=== PATIENT | female | born 1985 | race Caucasian/White ===

== ENCOUNTER 2017-03-18 21:44 | Emergency (ER) | payer OTHER ==
--- NOTE | 2017-03-18 21:52 | PDOC ---
History of Present Illness - General History Source: Patient Exam Limitations: No Limitations - History of Present Illness Initial Comments: 03/18/17 22:07 The patient is a 31 year old female, with no significant past medical history, who presents to the emergency room complaining of 5 days of left knee pain. She states that 5 days ago she had a cramp in her knee which prevented her from bending her knee at night. She states that pain remained and somewhat alleviated over the next 4 days, however, today the pain worsened to the point where that she was limping upon ambulation. She has been taking aleve with mild relief. She made an appointment with ortho for Wednesday, but could not tolerate the pain [facility] 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 Denies numbness and tingling. Denies recent falls or injury. Denies calf pain. PCP: Dr. Lalo Castro PAST MEDICAL HISTORY: no significant history PAST SURGICAL HISTORY: no significant history FAMILY HISTORY: no pertinent history MEDICATIONS: reviewed ALLERGIES: As per nursing notes Review of Systems General: No fevers or chills, no weakness, no weight loss HEENT: No change in vision. No sore throat, No ear pain CardioVascular: No chest pain or shortness of breath Respiratory:No cough, or wheezing. Gastrointestinal: no nausea, vomiting, diarrhea or constipation, No rectal bleeding Genitourinary: No dysuria, hematuria, or frequency Musculoskeletal: +pain to the left knee. Neurologic: No headache, vertigo, dizziness or loss of consciousness Psychiatric: nor depression Skin: No rashes or easy bruising Endocrine: no increased thirst or abnormal weight change Allergic: no skin or latex allergy All other systems reviewed and normal Physical exam GENERAL: The patient is awake, alert, and fully oriented, in no acute distress. HEAD: Normal with no signs of trauma. EYES: Pupils equal, round and reactive to light, extraocular movements intact, sclera anicteric, conjunctiva clear. LEFT LOWER EXTREMITY: + Mild swelling medially with tenderness to palpation distal to knee. There is no fullness or pain to palpation to the posterior knee. Neurovascular intact. No erythema, ecchymosis, or increased warmth in the area of the knee. NEUROLOGICAL: Normal speech. PSYCH: Normal mood, normal affect. SKIN: Warm, Dry, normal turgor, no rashes or lesions noted. <Chelsy Hopkins - Last Filed: 03/18/17 22:08> - General History Source: Patient Exam Limitations: No Limitations - History of Present Illness Initial Comments: 03/18/17 23:23 A portion of this note was documented by scribe services under my direction. I have reviewed the details of the note, within reason, and agree with the documentation. The case summary and management plan written by me. Ultrasound negative for DVT or lou's cyst. Assessment and plan: This is a 31-year-old female who comes in with several days of the medial pain in her left knee. Patient had some mild swelling to the area with minimal tenderness and was no bony tenderness. Patient had a Lotrisone that was negative for DVT or lou's cyst. Patient knee was Paco wrap and she was told to keep her appointment with her orthopedist for next week. Patient was told to continue to take the Naprosyn 2 tablets twice a day if needed with food. Patient discharged home. <Jacinda Espinoza I - Last Filed: 03/18/17 23:26> - General Chief Complaint: Pain, Acute Stated Complaint: LT LEG PAIN Time Seen by Provider: 03/18/17 21:51 Past History <Chelsy Hopkins - Last Filed: 03/18/17 22:08> - Past Medical History Asthma: Yes - Immunization History Td Vaccination: No Immunization Up to Date: Yes - Psycho/Social/Smoking Cessation Hx Anxiety: No Suicidal Ideation: No Smoking Status: Yes Smoking History: Never smoked Number of Cigarettes Smoked Daily: 10 Cigars Per Day: 0 Hx Alcohol Use: No Drug/Substance Use Hx: No Substance Use Type: None Hx Substance Use Treatment: No <Jacinda Espinoza I - Last Filed: 03/18/17 23:26> - Past Medical History Allergies/Adverse Reactions: Allergies Allergy/AdvReac Type Severity Reaction Status Date / Time No Known Allergies Allergy Verified 10/21/11 00:00 Home Medications: Ambulatory Orders Desogestrel-Ethinyl Estradiol [[place] 28 Day Tablet] 1 each PO DAILY *Physical Exam - Vital Signs Last Vital Signs Temp Pulse Resp BP Pulse Ox 98.9 F 88 16 126/84 98 03/18/17 21:49 03/18/17 21:49 03/18/17 21:49 03/18/17 21:49 03/18/17 21:49 <Chelsy Hopkins - Last Filed: 03/18/17 22:08> - Vital Signs Last Vital Signs Temp Pulse Resp BP Pulse Ox 98.9 F 88 16 126/84 98 03/18/17 21:49 03/18/17 21:49 03/18/17 21:49 03/18/17 21:49 03/18/17 21:49 <Jacinda Espinoza I - Last Filed: 03/18/17 23:26> *DC/Admit/Observation/Transfer - Attestations Scribe Attestion: 03/18/17 22:08 Documentation prepared by ELEAZAR Persaud, acting as regional medical director for Jacinda Espinoza MD. <Chelsy Hopkins - Last Filed: 03/18/17 22:08> - Discharge Dispostion Admit: No <Jacinda Espinoza I - Last Filed: 03/18/17 23:26> Diagnosis at time of Disposition: Left medial knee pain - Discharge Dispostion Disposition: HOME Condition at time of disposition: Stable - Referrals Referrals: Lalo Castro [Primary Care Provider] - - Patient Instructions Additional Instructions: For the pain you can take Tylenol as directed on the bottle or you can take Naprosyn 2 tablets twice a day with food. Keep your appointment with your orthopedist for next week. Return to the emergency department immediately with ANY new, persistent or worsening symptoms. Continue any medications as previously prescribed by your physician. You should follow up with your primary doctor as soon as possible regarding today's emergency department visit. . Please make sure your doctor reviews the results of your emergency evaluation. Thank you for coming to the Emergency Department today for your care. It was a pleasure to see you today. Please note that your evaluation is INCOMPLETE until you follow-up with your doctor.
[2017-03-18 21:54] VITALS: BP 126/84; PULSE 88; TEMP 98.9; BMI 33.0
== END 2017-03-18 23:34 | disposition home or self-care (01) ==
LOC: FER 21:44
DX: M25.562 Pain in left knee (principal)
CPT/HCPCS: 93971-TC; 99282-25

== ENCOUNTER 2020-10-30 13:09 | Emergency (ER) | payer OTHER ==
[2020-10-31 07:08] LABS: SARS-CoV-2 NAA Not Detected (Not Detected)
== END 2020-10-30 14:26 | disposition home or self-care (01) ==
LOC: JVIRT 13:09
DX: Z20.822 Contact with and (suspected) exposure to COVID-19 (principal)
CPT/HCPCS: C9803; G2251-GT; Q3014-GT; U0003; U0005

== ENCOUNTER 2021-07-11 16:53 | Emergency (ER) | payer OTHER ==
[2021-07-11 17:05] VITALS: BP 125/76; PULSE 78; TEMP 98; BMI 29.8
[2021-07-15 01:06] LABS: SARS-CoV-2 NAA Detected (Not Detected)
== END 2021-07-11 17:27 | disposition home or self-care (01) ==
LOC: FER 16:53
DX: J02.9 Acute pharyngitis, unspecified (principal); M79.10 Myalgia, unspecified site
CPT/HCPCS: 99283-25; C9803; U0003; U0005